=== PATIENT | male | born 1960 | race Caucasian/White ===

== ENCOUNTER → 2017-01-27 | Outpatient (CLI) | payer BC ==
[~2017-01-27] MED LIST: ROSUVASTATIN CA10 MG PO; TAMSULOSIN HCL0.4 MG PO
--- NOTE | 2017-01-27 08:42 | RADIOLOGY REPORT PS360 ---
FOOT-LT-3 VIEWS COMPARISON: Left foot 12/18/2016 HISTORY: Follow-up fracture TECHNIQUE: AP lateral and oblique views FINDINGS: The fracture at the proximal extent of the third metatarsal tarsals again noted with stable alignment again with slight 2 mm displacement at the fracture site. Faint callus formation is noted. Remaining metatarsals and phalanges all appear intact and the tarsal bones are normal. IMPRESSION: Early healing fracture third metatarsal is noted
== END ==
LOC: RAD 08:14
DX: S92.335D Nondisplaced fracture of third metatarsal bone, left foot, subsequent encounter for fracture with routine healing (principal)